=== PATIENT | male | born 1960 | race Two or more races ===

== ENCOUNTER 2018-05-14 13:54 | Emergency (ER) | payer OTHER ==
[2018-05-14] MEDS ORDERED: OXYCODONE/APAP 5/325 TAB PO ONE (14:48)
--- NOTE | 2018-05-14 14:56 | EDPHY ---
H & P Stated Complaint: CHEST PAIN SINCE FALL DOWN STAIRS Time Seen by Provider: 05/14/18 14:42 HPI/ROS: CHIEF COMPLAINT: Right posterior rib pain x9 days HISTORY OF PRESENT ILLNESS: 57-year-old male primarily [place]-speaking in the ER via private vehicle complaining of continued right posterior rib pain. She describes 9 days ago being at work walking down stair case, slipped and impacted the right posterior mid scapular region ribs against a pole. He has been followed at [facility] but expresses his displeasure level of care has been receiving there therefore comes to the ER. At that time he did impact his head. He denies loss of consciousness, denies chest pain, syncope or near syncope, denies headaches since, denies difficulty concentrating, denies midline C-spine pain, denies peripheral paresthesia, weakness, numbness. Denies dyspnea. Does have reproducible pain his right posterior ribs with coughing, laughing, inspiration in same location. REVIEW OF SYSTEMS: 10 systems reviewed and negative with the exception of the elements mentioned in the history of present illness PAST MEDICAL/SURGICAL HISTORY: no anticoagulant use, no relevant medical/ surgical history SOCIAL HISTORY: denies alcohol use at time of incident PHYSICAL EXAM 1) GENERAL: Well-developed, well-nourished, alert and oriented. Appears to be in no acute distress. Answering questions appropriately. 2) HEAD: Normocephalic, atraumatic 3) HEENT: Pupils equal, round, reactive to light bilaterally. Negative Horners. Nasopharynx, oropharynx, clear. No deformity or angulation of nose. No septal hematoma. No rhinorrhea. No oral trauma. Ears bilaterally with normal tympanic membranes. No hemotympanum. No fluid or blood in the external auditory canal. No raccoon eyes. No Parks sign. Teeth are normally aligned with no gross malocclusion, TMJ bilaterally nontender, facial bones nontender including the zygomatic arch, maxilla mandible. 4) NECK: No cervical collar is on. Posterior cervical spine is nontender, no stepoff, no effusion. Full range of motion which does not elicit any midline cervical spine pain, no posterior midline tenderness, no step-off. 5) LUNGS: Clear to auscultation bilaterally, no wheezes, no rhonchi, no retractions. No obvious signs of trauma. No chest wall pain. No flaring, no grunting. Moving symmetrically. No crepitus. 6) HEART: Regular rate and rhythm, 7) ABDOMEN: No guarding, no rebound, no focal tenderness, no peritoneal signs, no signs of trauma, no ecchymosis 8) MUSCULOSKELETAL: Moving all extremities, no focal areas of tenderness, no obvious trauma. 9) BACK: Subacute abrasion right inferior scapular region. No scapular pain. Tender to palpation right mid scapular line approximately rib T5 No midline vertebral tenderness, no fluctuance, no step-off, no obvious trauma, no visual or palpable abnormality. 10) SKIN: No laceration. DIFFERENTIAL DIAGNOSIS: In no particular order including but not limited to fracture, contusion, pneumothorax, atelectasis, pneumonia - Personal History Current Tetanus Diphtheria and Acellular Pertussis (TDAP): Unsure - Medical/Surgical History Hx Asthma: No Hx Chronic Respiratory Disease: No Hx Diabetes: No Hx Cardiac Disease: No Hx Renal Disease: No Hx Cirrhosis: No Hx Alcoholism: No Hx HIV/AIDS: No Hx Splenectomy or Spleen Trauma: No Other PMH: appy done in [place] - Social History Smoking Status: Never smoked Constitutional: Initial Vital Signs Temperature (C) 36.5 C 05/14/18 14:01 Heart Rate 63 05/14/18 14:01 Respiratory Rate 16 05/14/18 14:01 Blood Pressure 178/108 H 05/14/18 14:01 O2 Sat (%) 96 05/14/18 14:01 O2 Delivery Mode Room Air Allergies/Adverse Reactions: No Known Drug Allergies Allergy (Verified 05/14/18 14:06) Home Medications: Medication Instructions Recorded Hydrocodone/APAP 5/325 [[place] 1 tab PO Q6 PRN #10 tab 05/14/18 5/325 (RX)] Medical Decision Making - Diagnostics Imaging Results: Imaging Impressions Ribs w/Chest X-Ray 05/14/18 14:48 Impression: 1. Negative Right rib series. 2. No acute abnormality within the chest. Images reviewed myself ED Course/Re-evaluation: 2:50 p.m.: I have evaluated this patient, he does have localized tenderness in the right posterior ribs. He initially expressed desire to obtain CT of his chest. Explained the patient that although a CT may provide greater sensitivity for posterior rib fracture, this more than likely would not change the immediate treatment plan. After this discussion he declined CT imaging. Will obtain chest x-ray. Will provide incentive spirometer and analgesia. His abdomen remains soft. Doubt solid organ injury. 3:27 p.m.: Re-evaluation, discussed negative imaging results. Breathing comfortably. Appears comfortable, maintaining normal saturations, I think the patient can be discharged home. Doubt cardiac etiology. Doubt PE. I do not think that further diagnostic studies indicated from the emergency department. Will be discharged with analgesia. My usual and customary discharge precautions instructions regarding his condition have been provided. He feels comfortable being discharged. I saw this patient independently based on established practice protocols. Care of patient under supervision of secondary supervising physician Dr Marcelino Guzman . - Data Points Medications Given: Discontinued Medications Oxycodone/Acetaminophen (Percocet 5/325) 1 tab PO EDNOW ONE Stop: 05/14/18 14:49 Last Admin: 05/14/18 14:52 Dose: 1 tab Departure - Departure Disposition: Home, Routine, Self-Care Clinical Impression: Rib pain on right side Condition: Good Instructions: Rib Contusion (ED) Additional Instructions: Return to the ER if you develop abdominal pain, worsening pain, shortness of breath or any other symptoms that concern you. Referrals: Follow-up, with your work comp provider in 2 days [Other] - As per Instructions Stand Alone Forms: Work Comp Follow Up, Work Excuse Prescriptions: Hydrocodone/APAP 5/325 [[place] 5/325 (RX)] 1 tab PO Q6 PRN #10 tab PRN Reason: Pain, Severe Print Language: [place]
[2018-05-14 15:47] VITALS: BP 174/89
== END 2018-05-14 15:47 | disposition home or self-care (01) ==
DX: R07.81 Pleurodynia (principal); W10.8XXA Fall (on) (from) other stairs and steps, initial encounter; Y92.89 Other specified places as the place of occurrence of the external cause